=== PATIENT | male | born 1975 | race Caucasian/White ===

== ENCOUNTER 2021-02-02 14:40 | Emergency (ER) | payer OTHER ==
[~2021-02-02 14:40] MED LIST: BUSPAR5 MG PO; DIAZEPAM 5MG TAB5 MG PO; DULERA 200 MCG8.8 GM PO; EFFEXOR XR37.5 MG PO; HEPARIN 3010 UNIT/1 IV; LIBRIUM25 MG PO; MINIPRESS2 MG PO; NEURONTIN300 MG PO; NORCO 5-325 TA1 EACH PO; PERCOCET 5-3251 EACH PO; PROTONIX 40MG T40 MG PO; SUCRALFATE1 GM PO; VANCOMYCIN1.5 GM/250 IV; VANCOMYCIN1.5 GM/300 IV; VISTARIL50 MG PO
[2021-02-02 16:28] LABS: ALBUMIN 3.9 g/dL (3.4-5.0); BILIRUBIN - TOTAL 3.4 mg/dL (0.2-1.0); BUN/CREAT RATIO (CALC) 24.2 RATIO; CREATININE 0.66 mg/dL (0.67-1.17); GLOBULIN (CALCULATION) 3.8 g/dL; POTASSIUM 4.9 mmol/L (3.5-5.1); TOTAL PROTEIN 7.7 g/dL (6.4-8.2)
[2021-02-02 16:50] LABS: BASOPHIL 0.7 % (0-2); EOSINOPHIL 0.1 % (0-5); HGB 18.1 g/dl (13.2-18.0); LYMPHOCYTE 7.2 % (15-48); MCH 32.7 pg (25.0-31.0); MCHC 36.2 g/dL (32.0-36.0); MCV 90.4 fL (78.0-100.0); MONOCYTE 2.5 % (0-12); MPV 10.3 fL (6.0-9.5); NRBC 0; RBC 5.53 M/uL (4.70-6.00); RDW 13.2 % (11.5-14.0); WBC 13.2 K/uL (4.0-10.5)
[2021-02-02 17:13] LABS: PLT 205 K/uL (150-400)
[2021-02-02 18:14] LABS: BILIRUBIN NEGATIVE (NEGATIVE); BLOOD TRACE-INTACT Ery/uL (NEGATIVE); CLARITY CLEAR (CLEAR); COLOR YELLOW (YELLOW); GLUCOSE (U) NORMAL (NORMAL); LEUKOCYTES NEGATIVE Leu/uL (NEGATIVE); NITRITE NEGATIVE (NEGATIVE); PROTEIN 1+ mg/dL (NEGATIVE); SPECIFIC GRAVITY >=1.030 (1.001-1.030)
[2021-02-02 18:22] LABS: AMPHETAMINES NEGATIVE (NEGATIVE); BARBITURATES NEGATIVE (NEGATIVE); ECSTASY (MDMA) NEGATIVE (NEGATIVE); MARIJUANA (THC) NEGATIVE (NEGATIVE); METHADONE NEGATIVE (NEGATIVE); OPIATES NEGATIVE (NEGATIVE); OXYCODONE NEGATIVE (NEGATIVE)
[2021-02-02 18:27] LABS: BACTERIA TRACE
[2021-02-02 18:53] LABS: LACTIC ACID 2.6 mmol/L (0.4-1.9)
[2021-02-02 19:33] LABS: ACETAMINOPHEN (TYLENOL) < 2.0 ug/mL (10.0-30.0)
== END 2021-02-02 21:45 | disposition other institution (70) ==
LOC: FER 14:40
PROVIDERS: Emergency Medicine
DX: R11.2 Nausea with vomiting, unspecified (principal); R19.7 Diarrhea, unspecified; F10.10 Alcohol abuse, uncomplicated; R79.89 Other specified abnormal findings of blood chemistry; R74.02 Elevation of levels of lactic acid dehydrogenase [LDH]; R10.84 Generalized abdominal pain; J44.9 Chronic obstructive pulmonary disease, unspecified; F17.200 Nicotine dependence, unspecified, uncomplicated; Z87.19 Personal history of other diseases of the digestive system; Z20.822 Contact with and (suspected) exposure to COVID-19
CPT/HCPCS: 36415; 71045; 80053; 80305; 81001; 83605; 83690; 83735; 85025; 87040; 96372; G0480; J1170; J2060; J2270; J2405; J2543; J3411; J3475; J7030; Q9967; U0002

== ENCOUNTER 2021-08-30 13:05 | Emergency (ER) | payer OTHER ==
[2021-08-30 14:20] LABS: BASOPHIL 0.8 % (0-2); EOSINOPHIL 0 % (0-5); HCT 47.4 % (42.0-52.0); HGB 16.1 g/dl (13.2-18.0); LYMPHOCYTE 21.2 % (15-48); MCH 32.2 pg (25.0-31.0); MCV 94.8 fL (78.0-100.0); MONOCYTE 12.6 % (0-12); MPV 9.8 fL (6.0-9.5); NEUTROPHIL 65.1 % (41-80); NRBC 0; PLT 333 K/uL (150-400); RDW 13.5 % (11.5-14.0); WBC 7.4 K/uL (4.0-10.5)
[2021-08-30 14:33] LABS: BUN 12 mg/dL (7-18); CHLORIDE 93 mmol/L (98-107); CO2 (BICARBONATE) 35 mmol/L (21-32); CREATININE 0.64 mg/dL (0.67-1.17); GLUCOSE 249 mg/dL (74-106); POTASSIUM 3.1 mmol/L (3.5-5.1)
== END 2021-08-30 15:52 | disposition home or self-care (01) ==
LOC: FER 13:05
PROVIDERS: Nurse Practitioner Family
DX: F10.10 Alcohol abuse, uncomplicated (principal); E87.6 Hypokalemia; Z88.6 Allergy status to analgesic agent; Y90.0 Blood alcohol level of less than 20 mg/100 ml
CPT/HCPCS: 36415; 80048; 85025; 99284; G0480; J7120